=== PATIENT | male | born 1985 | race Caucasian/White ===

== ENCOUNTER 2023-07-15 10:54 | Day surgery (SDC) | payer OTHER ==
[~2023-07-15 10:54] MED LIST: HYDROmorphone 0.5 MG/0.5 ML SYRINGE IVP PRN; MIDAZOLAM 2 MG/2 ML VIAL IV PRN; Pre Op ABX Message 1 EACH MISC MISCELLANE ONE
[2023-07-15] MEDS: LACTATED RINGERS 1,000 ML IV SCH (11:29)
[2023-07-15 11:50] LABS: Glucose,Whole Blood 145 mg/dL (70-110)
[2023-07-15] MEDS: SCOPOLAMINE 1 MG/72 HR PATCH TRANSDERM ONE (11:56)
[2023-07-15] MEDS: ONDANSETRON 4 MG/2 ML VIAL IVP ONE (11:56)
[2023-07-15] MEDS: DEXAMETHASONE SOD PHOSPHATE 4 MG/ML 1 ML VIAL IV ONE (11:56)
[2023-07-15] MEDS: LIDOCAINE 1% INJ 10MG/ML (20 ML MDV) SQ ONE ×2 (12:09→12:48)
[2023-07-15] MEDS: BUPIVACAINE (PF) 0.5% 30 ML VIAL SQ ONE ×2 (12:09→12:48)
[2023-07-15] MEDS ORDERED: PROPOFOL 10 MG/ML 20 ML VIAL IV ONE (12:34)
[2023-07-15] MEDS ORDERED: MIDAZOLAM 2 MG/2 ML VIAL ONE (12:34)
[2023-07-15] MEDS ORDERED: LIDOCAINE 1% INJ 10MG/ML (20 ML MDV) ONE (12:34)
[2023-07-15 12:37] LABS: African American GFR (CKD) >90 (>60 ml/min/1.73 sqM); Anion Gap 4 mmol/L; Blood Urea Nitrogen 21 mg/dL (9-20); Calcium 8.9 mg/dL (8.4-10.2); Carbon Dioxide 21 mmol/L (22-30); Chloride 109 mmol/L (98-107); Glucose 151 mg/dL (74-99); Non-African American GFR(CKD) >90 (>60 ml/min/1.73 sqM); Sodium 134 mmol/L (137-145)
[2023-07-15 13:10] LABS: Glucose,Whole Blood 133 mg/dL (70-110)
--- NOTE | 2023-07-15 20:59 | P.OP ---
Date of Procedure: 07/15/23 Preoperative Diagnosis: right carpal tunnel syndrome Postoperative Diagnosis: same Procedure(s) Performed: right endoscopic carpal tunnel release Anesthesia: JORGE LUIS, local Surgeon: Babita Hodge Estimated Blood Loss (ml): 0 Disposition: PACU Indications for Procedure: Patient has numbness and tingling in the median nerve distribution of their hand. It is worse at night. EMG confirms carpal tunnel syndrome. Description of Procedure: The patient, operative extremity, and procedure were identified in the preoperative holding area. After informed consent was obtained, the patient was then brought back to the operating room where a local block was performed with lidocaine with epinephrine and 0.5% marcaine. The extremity was then prepped and draped in normal sterile fashion with a tourniquet on the patients brachium. A formal timeout was performed and the tourniquet was inflated to 250mmHg. A tr ansverse incision was made just ulnar to the palmaris longus tendon. Dissection was taken down to the forearm fascia. This is released proximally about a centimeter. The incision was utilized to access the carpal tunnel with a scraping tool and serial dilators followed by the cannula. When the microaire device was inserted, the transverse carpal ligament was well isolated without any aberrant soft tissue visible. Under direct visualization, the cutting tool was used to transect the transverse carpal ligament in its entirety. The release was confirmed visually with the arthroscope and also by palpation with the dilator tool. Tourniquet was then let down, hemostasis was achieved and the wound was closed with skin glue and steristrips. Wound was dressed with telfa and tegaderm. Patient was aroused by the anesthesia team and brought back to PACU in stable condition.
== END 2023-07-15 13:53 | disposition home or self-care (01) ==
LOC: OR 10:54
PROVIDERS: ATTEND Orthopaedic Surgery Hand Surgery
DX: G56.01 Carpal tunnel syndrome, right upper limb (principal); E11.9 Type 2 diabetes mellitus without complications; E07.9 Disorder of thyroid, unspecified; Z79.890 Hormone replacement therapy; Z79.899 Other long term (current) drug therapy; Z98.890 Other specified postprocedural states; Z96.41 Presence of insulin pump (external) (internal)
CPT/HCPCS: 29848; 80048; J2250; J1100; J2405; J2001; J2704; J0665

== ENCOUNTER 2023-08-05 10:52 | Day surgery (SDC) | payer OTHER ==
[~2023-08-05 10:52] MED LIST changes: -HYDROmorphone 0.5 MG/0.5 ML SYRINGE IVP PRN; +LACTATED RINGERS 1,000 ML IV SCH; +LIDOCAINE 1% (10MG/ML) FOR IV START INTRADERMA PRN; -MIDAZOLAM 2 MG/2 ML VIAL IV PRN
[2023-08-05] MEDS: LACTATED RINGERS 1,000 ML IV ONE (11:10)
[2023-08-05 11:29] LABS: Glucose,Whole Blood 185 mg/dL (70-110)
[2023-08-05] MEDS: BUPIVACAINE (PF) 0.5% 30 ML VIAL SQ ONE ×2 (12:12→12:40)
[2023-08-05] MEDS: LIDOCAINE 1% INJ 10MG/ML (20 ML MDV) SQ ONE ×2 (12:13→12:40)
[2023-08-05] MEDS ORDERED: PROPOFOL 10 MG/ML 20 ML VIAL IV ONE (12:30)
[2023-08-05] MEDS ORDERED: MIDAZOLAM 2 MG/2 ML VIAL ONE (12:30)
[2023-08-05 13:19] LABS: Glucose,Whole Blood 121 mg/dL (70-110)
--- NOTE | 2023-08-05 16:22 | P.OP ---
Date of Procedure: 08/05/23 Preoperative Diagnosis: Left carpal tunnel syndrome Postoperative Diagnosis: same Procedure(s) Performed: Left endoscopic carpal tunnel release Anesthesia: MAC, local Surgeon: Babita Hodge Estimated Blood Loss (ml): 0 Condition: stable Disposition: PACU Indications for Procedure: Patient has numbness and tingling in the median nerve distribution that is worse at night. EMG confirms carpal tunnel syndrome. Description of Procedure: The patient, operative extremity, and procedure were identified in the preoperative holding area. After informed consent was obtained, the patient was then brought back to the operating room where a local block was performed with lidocaine with epinephrine and 0.5% marcaine. The extremity was then prepped and draped in normal sterile fashion with a tourniquet on the patients brachium. A formal timeout was performed and the tourniquet was inflated to 250mmHg. A transverse incision was made just ulnar to the palmaris longus tendon. Dissection was taken down to the forearm fascia. This is released proximally about a centimeter. The incision was utilized to access the carpal tunnel with the scraping tool, serial dilators, followed by the cannula. When the arthroscope device was inserted, the transverse carpal ligament was well iso lated without any aberrant soft tissue visible. Under direct visualization, the blade was deplored and was used to transect the transverse carpal ligament in its entirety. The release was confirmed visually with the arthroscope and also by palpation with the dilator tool. Tourniquet was then let down, hemostasis was achieved and the wound was closed with skin glue and steristrips. Wound was dressed with telfa and tegaderm. Patient was aroused by the anesthesia team and brought back to PACU in stable condition.
== END 2023-08-05 13:42 | disposition home or self-care (01) ==
LOC: OR 10:52
PROVIDERS: ATTEND Orthopaedic Surgery Hand Surgery
DX: G56.02 Carpal tunnel syndrome, left upper limb (principal); I10 Essential (primary) hypertension; E03.9 Hypothyroidism, unspecified; E10.9 Type 1 diabetes mellitus without complications; Z79.4 Long term (current) use of insulin; Z79.890 Hormone replacement therapy; Z79.899 Other long term (current) drug therapy; Z98.890 Other specified postprocedural states
CPT/HCPCS: 29848; J2001; J0665

== ENCOUNTER → 2024-09-07 | Outpatient (CLI) | payer OTHER ==
--- NOTE | 2024-09-08 07:40 | XR ---
EXAMINATION TYPE: XR forearm RT DATE OF EXAM: 09/07/2024 6:01 PM COMPARISON: None CLINICAL INDICATION: Male, 39 years old with history of LOCALIZED SWELLING, MASS AND LUMP, RIGHT UPPE R LIMB; PHH, pain TECHNIQUE: 2 views FINDINGS: Wrist and elbow articulations are grossly intact. No sizable elbow joint effusion is seen. No acute fracture. Some vascular calcifications may reflect underlying diabetes and chronic kidney di sease. No periostitis or osteolysis. IMPRESSION: We note vascular calcifications that could reflect diabetes and/or chronic kidney disease. Clinically correlate. Otherwise, no acute osseous abnormality seen. [facility], , 09/08/2024 7:38 AM
== END | disposition home or self-care (01) ==
LOC: RADXRMAIN 17:24
PROVIDERS: ATTEND Physician Assistant
DX: R22.31 Localized swelling, mass and lump, right upper limb (principal)